=== PATIENT | female | born 1985 | race Caucasian/White ===

== ENCOUNTER → 2019-11-14 | Emergency (ER) | payer BC, MEDICAID, OTHER ==
[~2019-11-14] VITALS: Ht 162.6 cm; Wt 104.3 kg
[~2019-11-14] MED LIST: ACET-1603 PO; ASPirin 81 mg TAB PO ONE; CIPR-173 PO; HYDR2TAB58 PO; IBUP800T24 PO; PROMETHAZINE PO
[2019-11-14 12:48] LABS: Alcohol, Urine < 3.0 mg/dL (0-5); Amphetamine Screen, Urine NEGATIVE (NEGATIVE); Barbiturate Scree,Urine NEGATIVE (NEGATIVE); Benzodiazephine Screen, Urine NEGATIVE (NEGATIVE); Cannabinoid Screen, Urine NEGATIVE (NEGATIVE); Cocaine Screen, Urine NEGATIVE (NEGATIVE); Opiate Scree,Urine NEGATIVE (NEGATIVE); Phencyclidine Screen, Urine NEGATIVE (NEGATIVE)
[2019-11-14 13:00] LABS: Hemoglobin 12.8 g/dL (12.2-16.2); Mean Corpuscular Volume 75.9 fL (80.0-100.0); Neutrophils # (auto) 5.2 10 ^3/uL (1.6-8.6)
[2019-11-14 13:02] LABS: Basophils # (auto) 0.1 10 ^3/uL (0-0.2); Basophils % (auto) 0.7 % (0.0-2.0); Eosinophils # (auto) 0.3 10 ^3/uL (0-0.8); Eosinophils % (auto) 3.6 % (0.0-7.0); Hematocrit 39.2 % (36.0-46.0); Lymphocytes % (auto) 32.9 % (10.0-50.0); Mean Corpuscular Hemoglobin 24.8 pg (28.0-32.0); Mean Corpuscular Hgb Conc. 32.7 g/dL (32.0-36.0); Monocytes # (auto) 0.4 10 ^3/uL (0-1.3); Monocytes % (auto) 4.8 % (0.0-12.0); Platelet Count (auto) 317 10^3/uL (140-450); Red Blood Cells 5.16 10^6/uL (4.0-5.20); Red Cell Distribution Width 15.1 % (11.8-14.3)
[2019-11-14 13:17] LABS: Alanine Aminotransferase 21 U/L (13-56); Albumin 2.9 g/dL (3.4-5.0); Anion Gap 8 (5-15); Aspartate Aminotransferase 12 U/L (15-37); Blood Urea Nitrogen 9 mg/dL (7-18); Calcium 7.3 mg/dL (8.5-10.1); Carbon Dioxide 24 mmol/L (21-32); Chloride 112 mmol/L (98-107); GFR African American 182 mL/min; GFR Non-African American 150 mL/min; Glucose 98 mg/dL (74-106); Potassium 3.5 mmol/L (3.5-5.1); Sodium 144 mmol/L (136-145)
[2019-11-14 13:18] LABS: INR 1.01 (0.9-1.15); Partial Thromboplastin Time 28.6 sec (23.64-32.05)
[2019-11-14 13:22] LABS: Alkaline Phosphatase 80 U/L (45-117); Bilirubin, Total 0.2 mg/dL (0.2-1.0); Total Protein 6.5 g/dL (6.4-8.2)
[2019-11-14 15:38] VITALS: BP 114/75
== END | disposition home or self-care (01) ==
LOC: ER 11:57
DX: R07.89 Other chest pain (principal)
CPT/HCPCS: 36415; 71045; 80053; 80307; 83735; 84443; 84484; 85025; 85379; 85610; 85730; 93005

== ENCOUNTER 2024-05-27 21:45 | Emergency (ER) | payer MEDICAID ==
[~2024-05-27] VITALS: Ht 162.6 cm; Wt 100.0 kg
[~2024-05-27 21:45] MED LIST changes: -ASPirin 81 mg TAB PO ONE; +IBUP-1456 PO; -IBUP800T24 PO
[2024-05-27] MEDS ORDERED: cloNIDine 0.2 mg/24hr 7DAY PATCH TD ONE (22:00)
--- NOTE | 2024-05-27 22:06 | ED.PDOC ---
History of Present Illness HPI Comments 38 y/o F, with a Hx of anemia, anxiety, asthma, Chiari malformation, obesity, and sleep apnea and a FMHx of HTN and heart disease, is BIBA for c/o chest and abdominal pain and shortness of breath, today. Per EMS report, patient endorses on intermittent epigastric and sternal chest "tightness" of few minutes in duration that began at around 2049, this evening. At time of assessment, patient comments on pain beginning in her epigastric area prior to radiating to her chest in addition to difficulty breathing ensuing afterwards and having problems "getting word out," due to being out of breath. Patient was found on scene by EMS staff hypertensive, with no prior Hx, with all remaining vitals being stable and within normal limits. Patient also is reported to have had some stress, earlier, pertaining to unknown issue with her pet dog and sibling. Patient informs, additionally, on seeing a consultants intern in the past and being informed on having sleep apnea and "a fast heart rate" then when evaluated for prior cardiac issues in the past. Patient endorses no further relevant or pertinent Hx along with any recent injuries, sick contact, travel, spoiled food, or substance use/exposure. Denies having any palpitations, dizziness, nausea, vomiting, fever, chills, or other associated symptoms or modifiers at this time. 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 TEACHER/KEYLA Reviewed Notes: Nurses Notes, Digital Program Manager Notes, Medications, Allergies Allergies: Coded Allergies: Acetaminophen (Verified Allergy, Unknown, 05/27/24) Hydrocodone (Verified Allergy, Unknown, 05/27/24) Home Meds Reported Medications Ciprofloxacin Hcl (Cipro) 500 Mg Tab, PO BID 09/02/11 Hydromorphone Hcl (Dilaudid) 2 Mg Tab, PO Q2HP 09/02/11 Ibuprofen (Ibuprofen) 800 Mg Tab, PO Q6HP 09/02/11 [Promethazine] No Conflict Check, 25 MG PO Q4HP 09/02/11 Acetaminophen W/ Codeine (Tylenol/Codeine #3) #3 Tab, PO Q4HP 09/02/11 Information Source: Patient, Emergency Med Personnel Mode of Arrival: EMS Severity: Moderate Timing: Hours Duration: Intermittent, Minutes Prehospital treatment: 12 Lead EKG, Metals Sales Representative Past Medical History PAST MEDICAL HISTORY: Anemia, Anxiety, Asthma, Depression Past Medical History (Other): Chiari malformation, obesity, sleep apnea Surgical History: Appendectomy, Hysterectomy, Tubal Ligation HIGH SCHOOL BIOLOGY TEACHER History: Denies all HIGH SCHOOL BIOLOGY TEACHER Hx Family History Family History: Family hx of heart bryce, Family hx of HTN Social History Smoker: Non-Smoker Alcohol: Denies ETOH Use Drugs: Denies Drug Use Lives In: Home Constitutional: denies: chills, diaphoresis, fatigue, fever, malaise, sweats, weakness, others EENTM: denies: blurred vision, double vision, ear bleeding, ear discharge, ear drainage, ear pain, ear ringing, eye pain, eye redness, hearing loss, mouth pain, mouth swelling, nasal discharge, nose bleeding, nose congestion, nose pain, photophobia, tearing, throat pain, throat swelling, voice changes, others Respiratory: reports: shortness of breath; denies: cough, hemoptysis, orthopnea, SOB at rest, SOB with excertion, stridor, wheezing, others Cardiovascular: reports: chest pain; denies: dizzy spells, diaphoresis, Dyspnea on exertion, edema, irregular heart beat, left arm pain, lightheadedness, palpitations, PND, syncope, others Gastrointestinal: reports: abdominal pain; denies: abdomen distended, blood streaked bowels, constipated, diarrhea, dysphagia, difficulty swallowing, hematemesis, melena, nausea, poor appetite, poor fluid intake, rectal bleeding, rectal pain, vomiting, others Genitourinary: denies: abnormal vagina bleeding, burning, dyspareunia, dysuria, flank pain, frequency, hematuria, incontinence, pain, , vagina discharge, urgency, others Neurological: denies: dizziness, fainting, headache, left sided numbness, left sided weakness, numbness, paresthesia, pre-existing deficit, right sided numbness, right sided weakness, seizure, speech problems, tingling, tremors, weakness, others Musculoskeletal: denies: back pain, gout, joint pain, joint swelling, muscle pain, muscle stiffness, neck pain, others Integumetry: denies: bruises, change in color, change in hair/nails, dryness, laceration, lesions, lumps, rash, wounds, others Allergic/Immunocompromised: denies: Difficulty Healing, Frequent Infections, Hives, Itching, others Hematologic/Lymphatic: denies: anemia, blood clots, easy bleeding, easy bruising, swollen glands, others Endocrine: denies: excessive hunger, excessive sweating, excessive thirst, excessive urination, flushing, intolerance to cold, intolerance to heat, unexplained weight gain, unexplained weight loss, others Psychiatric: denies: anxiety, bipolar disorder, depression, hopeless, panic disorder, schizophrenia, sleepless, suicidal, others All Other Systems: Reviewed and Negative Physical Exam Exam Comments mild anterior chest wall tenderness noted General Appearance: Mild Distress, Normal HEENT: Normal ENT Inspection, Pharynx Normal, TMs Normal Neck: Full Range of Motion, Non-Tender, Normal, Normal Inspection Respiratory: Chest Non-Tender, Lungs Clear, No Accessory Muscle Use, No Respiratory Distress, Normal Breath Sounds Cardiovascular: No Edema, No JVD, No Murmur, No Gallop, Normal Peripheral Pulses, Regular Rate/Rhythm Breast Exam: Deferred Gastrointestinal: No Organomegaly, Non Tender, No Pulsatile Mass, Normal Bowel Sounds, Soft Genitalia: Deferred Pelvic: Deferred Rectal: Deferred Extremities: No calf tenderness, Normal capillary refill, Normal inspection, Normal range of motion, Non-tender, No pedal edema Musculoskeletal : Apperance: Normal Neurologic: Alert, blocking machine operator II-XII nml as Tested, No Motor Deficits, Normal Affect, Normal Mood, No Sensory Deficits Cerebellar Function: Normal Reflexes: Normal Skin: Dry, Normal Color, Warm Lymphatic: No Adenopathy Was a procedure done? Was a procedure done?: No EKG EKG : Pulse Rate (adult): 71 [place]: Normal Cardiac Rhythm: NSR Block: None Hypertrophy: None ST: Normal Differential Dx Considerations may include: anxiety, gastritis, gastroenteritis, CO, ACS, PE, angina, costochondritis, pericarditis X-Ray, Labs, Meds, VS Vital Signs Date Time Temp Pulse Resp B/P (MAP) Pulse Ox O2 Delivery O2 Flow Rate FiO2 05/28/24 00:32 97.9 79 14 126/70 (88) 99 97.9 05/28/24 00:32 79 14 99 Room Air* 0 21 05/27/24 22:54 73 05/27/24 22:15 139/74 05/27/24 22:15 139/74 (95) 05/27/24 22:06 71 05/27/24 21:53 98.1 74 18 160/125 (137) 100 05/27/24 21:47 71 Lab Test 05/27/24 23:36 05/27/24 22:18 Range/Units Troponin I High Sensitivity 4 4 </=34 ng/L White Blood Count 12.6 H 4.4-10.8 10^3/uL Red Blood Count 5.42 H 4.0-5.20 10^6/uL Hemoglobin 12.1 L 12.2-16.2 g/dL Hematocrit 37.8 36.0-46.0 % Mean Corpuscular Volume 69.8 L 80.0-100.0 fL Mean Corpuscular Hemoglobin 22.4 L 28.0-32.0 pg Mean Corpuscular Hemoglobin Concent 32.1 32.0-36.0 g/dL Red Cell Distribution Width 16.8 H 11.8-14.3 % Platelet Count 428 140-450 10^3/uL Mean Platelet Volume 7.7 6.9-10.8 fL Neutrophils (%) (Auto) 61.0 37.0-80.0 % Lymphocytes (%) (Auto) 30.9 10.0-50.0 % Monocytes (%) (Auto) 4.7 0.0-12.0 % Eosinophils (%) (Auto) 2.6 0.0-7.0 % Basophils (%) (Auto) 0.8 0.0-2.0 % Neutrophils # (Auto) 7.7 1.6-8.6 10 ^3/uL Lymphocytes # (Auto) 3.9 0.4-5.4 10 ^3/uL Monocytes # (Auto) 0.6 0-1.3 10 ^3/uL Eosinophils # (Auto) 0.3 0-0.8 10 ^3/uL Basophils # (Auto) 0.1 0-0.2 10 ^3/uL Nucleated Red Blood Cells 0.1 % Sodium Level 143 136-145 mmol/L Potassium Level 4.2 3.5-5.1 mmol/L Chloride Level 108 H 98-107 mmol/L Carbon Dioxide Level 25 20-31 mmol/L Anion Gap 10 5-15 Blood Urea Nitrogen 15 9-23 mg/dL Creatinine 0.83 0.550-1.02 mg/dL Glomerular Filtration Rate Calc 92 >90 mL/min BUN/Creatinine Ratio 18.1 10.0-20.0 Serum Glucose 88 74-106 mg/dL Calcium Level 10.1 8.7-10.4 mg/dL Total Bilirubin 0.2 0.2-1.0 mg/dL Aspartate Amino Transferase (AST) 33 13-40 U/L Alanine Aminotransferase (ALT) 30 7-40 U/L Alkaline Phosphatase 120 H 46-116 U/L Total Protein 7.2 5.7-8.2 g/dL Albumin 4.5 3.2-4.8 g/dL [place] [id number] Ph: [phone] DIAGNOSTIC IMAGING Diagnostic Imaging Report : [id number] Signed PATIENT: GWEN WATSON ACCT: [id number] UNIT: [id number] : 1985 LOC: ER ROOM / BED: / AGE / SEX: 38 / F ADM STATUS: REG ER SERVICE 50 ORDERING PHYSICIAN: LLOYD SAEZ MD PROCEDURE(s): CXR1 - CHEST XRAY 1 VIEW REASON: chest pain ORDER NUMBER(s): [id number], ACCESSION NUMBER(s): [id number] CHEST RADIOGRAPH Indication: chest pain Technique: Single frontal view of the chest was obtained Comparison: CHEST PORTABLE on DOS: 11/14/19 FINDINGS: Lines and Tubes: None Lungs: Clear Pleura: No effusion. No pneumothorax. Cardiomediastinal contours: Unremarkable Bones: Unremarkable IMPRESSION: 1. Clear lungs. ATED BY: SONYA LOZANO DO DICTATED DATE/TIME: 05/27/242246 SIGNED BY: SONYA LOZANO DO SIGNED DATE/TIME: 05/27/242246 CC: Time of 1ST Reevaluation: 22:20 Reevaluation 1ST: Unchanged Time of 2ND Reevaluation: 23:40 Reevaluation 2ND: Improved Patient Education/Counseling: Diagnosis, Treatment Family Education/Counseling: No Family Present Additional Information I personally reviewed and interpreted the EKG, chest xray and lab findings Departure 1 Departure Time of Disposition: 23:50 Impression: Primary Impression: Atypical chest pain Disposition: 01 HOME / SELF CARE / HOMELESS Condition: Stable Discharged With: Self Critical Care Note Critical Care Time?: No Stability Stability form required: No Heart Score Heart Score: Heart Score Response (Comments) Value History Slightly Suspicious 0 EKG Normal 0 Age <45 0 Risk Factors No known risk factors 0 Troponin Normal limit 0 Total 0 I personally scribed for LLOYD SAEZ MD ([email or web address]) on 05/27/24 at 22:06. Electronically submitted by Leonidas Whitt ([email or web address]). I personally scribed for LLOYD SAEZ MD ([email or web address]) on 05/27/24 at 23:45. Electronically submitted by Leonidas Whitt ([email or web address]). LLOYD SAEZ MD May 27, 2024 22:06
[2024-05-27] MEDS: cloNIDine HCL 0.1 MG TAB PO ONE (22:15)
[2024-05-27 22:35] LABS: Basophils # (auto) 0.1 10 ^3/uL (0-0.2); Hemoglobin 12.1 g/dL (12.2-16.2); Monocytes # (auto) 0.6 10 ^3/uL (0-1.3); Nucleated Red Blood Cells % 0.1 %; White Blood Cell 12.6 10^3/uL (4.4-10.8)
[2024-05-27 22:36] LABS: Basophils % (auto) 0.8 % (0.0-2.0); Eosinophils # (auto) 0.3 10 ^3/uL (0-0.8); Eosinophils % (auto) 2.6 % (0.0-7.0); Hematocrit 37.8 % (36.0-46.0); Lymphocytes # (auto) 3.9 10 ^3/uL (0.4-5.4); Lymphocytes % (auto) 30.9 % (10.0-50.0); Mean Corpuscular Hemoglobin 22.4 pg (28.0-32.0); Mean Corpuscular Hgb Conc. 32.1 g/dL (32.0-36.0); Mean Corpuscular Volume 69.8 fL (80.0-100.0); Monocytes % (auto) 4.7 % (0.0-12.0); Neutrophils # (auto) 7.7 10 ^3/uL (1.6-8.6); Platelet Count (auto) 428 10^3/uL (140-450); Red Blood Cells 5.42 10^6/uL (4.0-5.20); Red Cell Distribution Width 16.8 % (11.8-14.3)
[2024-05-27 22:43] LABS: Alanine Aminotransferase 30 U/L (7-40); Albumin 4.5 g/dL (3.2-4.8); Alkaline Phosphatase 120 U/L (46-116); Anion Gap 10 (5-15); Aspartate Aminotransferase 33 U/L (13-40); BUN/Creatinine Ratio 18.1 (10.0-20.0); Blood Urea Nitrogen 15 mg/dL (9-23); Calcium 10.1 mg/dL (8.7-10.4); Carbon Dioxide 25 mmol/L (20-31); Chloride 108 mmol/L (98-107); Glucose 88 mg/dL (74-106); Potassium 4.2 mmol/L (3.5-5.1); Sodium 143 mmol/L (136-145)
[2024-05-27 22:44] LABS: Bilirubin, Total 0.2 mg/dL (0.2-1.0); Total Protein 7.2 g/dL (5.7-8.2)
--- NOTE | 2024-05-27 22:49 | DVH ---
CHEST RADIOGRAPH Indication: chest pain Technique: Single frontal view of the chest was obtained Comparison: CHEST PORTABLE on DOS: 11/14/19 FINDINGS: Lines and Tubes: None Lungs: Clear Pleura: No effusion. No pneumothorax. Cardiomediastinal contours: Unremarkable Bones: Unremarkable IMPRESSION: 1. Clear lungs.
[2024-05-28 00:32] VITALS: BP 126/70; PULSE 79; RESP 14; TEMP 97.9; O2SAT 99
--- NOTE | 2024-05-28 06:57 | ECG ---
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
--- NOTE | 2024-05-28 07:01 | ECG ---
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
== END 2024-05-28 00:53 | disposition home or self-care (01) ==
LOC: EDUNIT# 21:45 → ER 21:45 → EDBD 21:45 → ER 05-28 00:53
DX: R07.89 Other chest pain (principal); I10 Essential (primary) hypertension; J45.909 Unspecified asthma, uncomplicated; Z88.5 Allergy status to narcotic agent; Z90.49 Acquired absence of other specified parts of digestive tract; Z90.710 Acquired absence of both cervix and uterus
CPT/HCPCS: 36415; 71045; 80053; 84484; 85025; 93005